=== PATIENT | female | born 1960 | race Caucasian/White ===

== ENCOUNTER 2022-02-18 12:37 | Emergency (ER) | payer OTHER ==
[~2022-02-18] VITALS: Ht 157.5 cm; Wt 63.5 kg
[2022-02-18 13:08] VITALS: BP 129/59
[2022-02-18] MEDS ORDERED: ACETAMINOPHEN ES 500 MG TABLET ONE (13:35)
--- NOTE | 2022-02-18 13:40 | NUR ---
TYLENOL PO GIVEN INDICATED, KATERINE WELL
[2022-02-18] MEDS: ACETAMINOPHEN ES 500 MG TABLET PO ONE (13:41)
--- NOTE | 2022-02-18 13:45 | NUR ---
RAPID FLU SWAB OBTAINED AND SENT TO LAB
--- NOTE | 2022-02-18 13:51 | NUR ---
Patient discharged to home in stable condition. Written and verbal after care instructions given. Patient verbalizes understanding of instruction.
== END 2022-02-18 14:10 | disposition home or self-care (01) ==
LOC: ER 12:57
DX: J06.9 Acute upper respiratory infection, unspecified (principal); R05.9 Cough, unspecified